=== PATIENT | male | born 1980 | race Caucasian/White ===

== ENCOUNTER 2022-06-11 18:45 | Emergency (ER) | payer BC, OTHER ==
[~2022-06-11] VITALS: Ht 177.8 cm; Wt 108.8 kg
--- NOTE | 2022-06-11 18:53 | ED GI ---
General Chief Complaint: Abdominal/GI Problems Stated Complaint: N/V,DIARRHEA Nursing Triage Note: PT BROUGHT IN BY [facility] FROM HOME WITH COMPLAINT OF ABD PAIN, N/V/D. STATES STARTED LAST WEDNESDAY. WAS DIAGNOSED WITH SHINGLES ON WEDNESDAY. GIVEN 4MG ZOFRAN BY EMS. History of Present Illness Date Seen by Provider: Jun 11, 2022 Time Seen by Provider: 18:49 Initial Comments Patient brought in by EMS for abdominal pain, nausea and vomiting that started last Wednesday. Was also recently diagnosed with shingles last Wednesday and has been taking the antiviral for that. Was given 4mg of Zofran enroute and that seems to have resolved his nausea at this time. Denies fever or recent sick contacts that he is aware of. Timing/Duration: 1 Week Severity/Quality: Moderate Location: Generalized Abdomen Modifying Factors: Worsens With Eating; Improves With Lying down, Improves With Resting Associated Symptoms: Diaphoresis, Nausea/Vomiting; No Shortness of Air Allergies and Home Medications Allergies Coded Allergies: No Known Drug Allergies (Unverified , 06/11/22) Patient Home Medication List Home Medication List Reviewed: Yes Review of Systems Review of Systems Constitutional: chills, diaphoresis; No dizziness, No fever; weakness (generalized) EENTM: No Symptoms Reported Respiratory: Denies Cough, Denies Shortness of Air Cardiovascular: Denies Chest Pain, Denies Palpitations, Denies Syncope Gastrointestinal: Abdominal Pain, Diarrhea, Nausea, Vomiting Genitourinary: Denies Frequency, Denies Pain, Denies Urgency Musculoskeletal: No back pain, No joint pain Skin: No pruritus, No rash Psychiatric/Neurological: Denies Headache, Denies Tingling All Other Systems Reviewed Negative Unless Noted: Yes Past [id number] Hx Family Medical History Reviewed Nursing Family Hx Physical Exam Vital Signs Vital Signs - First Documented 06/11/22 18:47 Temp 36.4 Pulse 103 Resp 20 B/P (MAP) 144/107 (119) Pulse Ox 97 O2 Delivery Room Air Capillary Refill : Less Than 3 Seconds Height/Weight/BMI Height: '" Weight: lbs. oz. kg; 34.00 BMI Method: General Appearance: WD/WN, mild distress (due to cramping) Neck: non-tender, full range of motion, supple, normal inspection Respiratory: chest non-tender, lungs clear, normal breath sounds, no respiratory distress, no accessory muscle use Cardiovascular: regular rate, rhythm Gastrointestinal: soft, no organomegaly, tenderness (epigastric) Extremities: normal range of motion, non-tender, normal inspection Back: normal inspection, no CVA tenderness Neurologic/Psychiatric: alert, normal mood/affect, oriented x 3 Skin: normal color, diaphoresis Progress/Results/Core Measures Results/Orders Lab Results Laboratory Tests Test 06/11/22 18:54 06/11/22 19:47 06/11/22 20:13 Range/Units White Blood Count 13.8 H 4.3-11.0 10^3/uL Red Blood Count 6.59 H 4.30-5.52 10^6/uL Hemoglobin 20.4 H 13.3-17.7 g/dL Hematocrit 57 H 40-54 % Mean Corpuscular Volume 86 80-99 fL Mean Corpuscular Hemoglobin 31 25-34 pg Mean Corpuscular Hemoglobin Concent 36 32-36 g/dL Red Cell Distribution Width 13.8 10.0-14.5 % Platelet Count 294 130-400 10^3/uL Mean Platelet Volume 10.5 9.0-12.2 fL Immature Granulocyte % (Auto) 0 % Neutrophils (%) (Auto) 69 42-75 % Lymphocytes (%) (Auto) 25 12-44 % Monocytes (%) (Auto) 4 0-12 % Eosinophils (%) (Auto) 1 0-10 % Basophils (%) (Auto) 1 0-10 % Neutrophils # (Auto) 9.5 H 1.8-7.8 10^3/uL Lymphocytes # (Auto) 3.4 1.0-4.0 10^3/uL Monocytes # (Auto) 0.6 0.0-1.0 10^3/uL Eosinophils # (Auto) 0.1 0.0-0.3 10^3/uL Basophils # (Auto) 0.1 0.0-0.1 10^3/uL Immature Granulocyte # (Auto) 0.0 0.0-0.1 10^3/uL Sodium Level 140 135-145 MMOL/L Potassium Level 3.8 3.6-5.0 MMOL/L Chloride Level 109 H 98-107 MMOL/L Carbon Dioxide Level 18 L 21-32 MMOL/L Anion Gap 13 5-14 MMOL/L Blood Urea Nitrogen 15 7-18 MG/DL Creatinine 1.50 H 0.60-1.30 MG/DL Estimat Glomerular Filtration Rate 59 BUN/Creatinine Ratio 10 Glucose Level 102 70-105 MG/DL Calcium Level 9.8 8.5-10.1 MG/DL Corrected Calcium 8.5-10.1 MG/DL Total Bilirubin 0.6 0.1-1.0 MG/DL Aspartate Amino Transf (AST/SGOT) 25 5-34 U/L Alanine Aminotransferase (ALT/SGPT) 54 0-55 U/L Alkaline Phosphatase 107 40-136 U/L Total Protein 8.6 H 6.4-8.2 GM/DL Albumin 4.9 H 3.2-4.5 GM/DL Serum Alcohol 12 H <10 MG/DL Urine Color MOHAN H Urine Clarity CLOUDY Urine pH 5.0 5-9 Urine Specific [place] >=1.030 1.016-1.022 Urine Protein 2+ H NEGATIVE Urine Glucose (UA) NEGATIVE NEGATIVE Urine Ketones TRACE H NEGATIVE Urine Nitrite NEGATIVE NEGATIVE Urine Bilirubin 2+ H NEGATIVE Urine Urobilinogen 1.0 < = 1.0 MG/DL Urine Leukocyte Esterase NEGATIVE NEGATIVE Urine RBC (Auto) NEGATIVE NEGATIVE Urine RBC RARE /HPF Urine WBC 0-2 /HPF Urine Squamous Epithelial Cells RARE /HPF Urine Crystals PRESENT H /LPF Urine Calcium Oxalate Crystals LARGE H /LPF Urine Bacteria MODERATE H /HPF Urine Casts PRESENT /LPF Urine Hyaline Casts >50 H /LPF Urine Mucus MODERATE H /LPF Urine Culture Indicated YES Urine Opiates Screen NEGATIVE NEGATIVE Urine Oxycodone Screen NEGATIVE NEGATIVE Urine Methadone Screen NEGATIVE NEGATIVE Urine Propoxyphene Screen NEGATIVE NEGATIVE Urine Barbiturates Screen NEGATIVE NEGATIVE Ur Tricyclic Antidepressants Screen POSITIVE H NEGATIVE Urine Phencyclidine Screen NEGATIVE NEGATIVE Urine Amphetamines Screen NEGATIVE NEGATIVE Urine Methamphetamines Screen NEGATIVE NEGATIVE Urine Benzodiazepines Screen NEGATIVE NEGATIVE Urine Cocaine Screen NEGATIVE NEGATIVE Urine Cannabinoids Screen POSITIVE H NEGATIVE My Orders Orders - 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 Cbc With Automated Diff (06/11/22 18:54) Drug Screen Stat (Urine) (06/11/22 18:54) Ua Culture If Indicated (06/11/22 18:54) Alcohol (06/11/22 19:47) Comprehensive Metabolic Panel (06/11/22 19:47) Ns Iv 1000 Ml (Sodium Chloride 0.9%) (06/11/22 20:45) Urine Culture (06/11/22 20:13) Vital Signs/I&O 06/11/22 06/11/22 18:47 21:37 Temp 36.4 36.4 Pulse 103 97 Resp 20 17 B/P (MAP) 144/107 (119) 138/101 Pulse Ox 97 97 O2 Delivery Room Air Room Air 06/12/22 00:00 Intake Total 1100 ml Balance 1100 ml Blood Pressure Mean: 119 Progress Progress Note : Progress Note Patient arrives to the emergency department via EMS for abdominal pain, nausea, vomiting and diarrhea. Is diaphoretic upon arrival and overall not feeling well. Received 4mg Zofran enroute by EMS which improved his nausea at this time. Does have a liter of IVF currently running from EMS. Will check labs and monitor. 2044: Labs resulted at this time and discussed with Dr. Muñiz. Of note, WBC count is elevated 13.8. Likely secondary to vomiting. Hemoglobin is 20.4 and likely this elevated from dehydration and not accurate reading. C02 is 18 after the first liter of fluids. Cr 1.50. No priors on record. He denies history of abnormal kidney function in the past. Could potentially have IAIN secondary to dehydration. UA shows hyaline casts and high specific gravity which is likely secondary to dehydration. UDS was positive for THC and Tricyclics. Will order second liter of fluids. Patient is not vomiting currently. Reports that he is feeling a lot better at this time. Does not have a PCP. 2124: Second liter of IVFs infused at this time. Discussed with patient on importance of follow up and getting labs rechecked on Wednesday next week. I did offer admission for possible IAIN but he declined. Continued to report that he is feeling a lot better. I instructed on the importance of continuing to push fluids and follow up with [facility] next week for repeat lab draw. Reasons to return to the ER were discussed with patient in addition. Departure Impression Primary Impression: Dehydration Disposition: 01 HOME, SELF-CARE Condition: Stable Departure-Patient Inst. Decision time for Depature: 21:31 Patient Instructions: Dehydration, Adult (DC) Add. Discharge Instructions: 1. Follow up [facility] [phone] on Wednesday for repeat labs of CBC and Chemistry. 2. Continue to push fluids. 3. Finish shingles medication as directed. 4. Return here if worse or concerns. All discharge instructions reviewed with patient and/or family. Voiced understanding. SHELBIE MURGUIA APRN Jun 11, 2022 18:53
[2022-06-11 19:03] LABS: BASOPHILS # (AUTO) 0.1 10^3/uL (0.0-0.1); BASOPHILS % (AUTO) 1 % (0-10); EOSINOPHILS # (AUTO) 0.1 10^3/uL (0.0-0.3); EOSINOPHILS % (AUTO) 1 % (0-10); HEMATOCRIT 57 % (40-54); HEMOGLOBIN 20.4 g/dL (13.3-17.7); LYMPHOCYTES # (AUTO) 3.4 10^3/uL (1.0-4.0); LYMPHOCYTES % (AUTO) 25 % (12-44); MEAN CORPUSCULAR HEMOGLOBIN 31 pg (25-34); MEAN CORPUSCULAR HGB CONC 36 g/dL (32-36); MEAN CORPUSCULAR VOLUME 86 fL (80-99); MEAN PLATELET VOLUME 10.5 fL (9.0-12.2); MONOCYTES # (AUTO) 0.6 10^3/uL (0.0-1.0); MONOCYTES % (AUTO) 4 % (0-12); NEUTROPHILS # (AUTO) 9.5 10^3/uL (1.8-7.8); NEUTROPHILS % (AUTO) 69 % (42-75); PLATELET COUNT 294 10^3/uL (130-400); WHITE BLOOD COUNT 13.8 10^3/uL (4.3-11.0)
[2022-06-11 20:28] LABS: CLARITY,URINE CLOUDY; COLOR,URINE AMBER; GLUCOSE, URINE (UA) NEGATIVE (NEGATIVE); KETONES,URINE TRACE (NEGATIVE); LEUKOCYTE ESTERASE ,URINE NEGATIVE (NEGATIVE); NITRITE,URINE NEGATIVE (NEGATIVE); PROTEIN,URINE 2+ (NEGATIVE)
[2022-06-11 20:36] LABS: ALANINE AMINOTRANSFERASE 54 U/L (0-55); ALBUMIN 4.9 GM/DL (3.2-4.5); ALKALINE PHOSPHATASE 107 U/L (40-136); BILIRUBIN,TOTAL 0.6 MG/DL (0.1-1.0); BUN/CREATININE RATIO 10; CALCIUM 9.8 MG/DL (8.5-10.1); CARBON DIOXIDE 18 MMOL/L (21-32); CHLORIDE 109 MMOL/L (98-107); GFR ESTIMATED 59; GLUCOSE 102 MG/DL (70-105); POTASSIUM 3.8 MMOL/L (3.6-5.0); SODIUM 140 MMOL/L (135-145); TOTAL PROTEIN 8.6 GM/DL (6.4-8.2)
[2022-06-11] MEDS ORDERED: NS IV 1000 ML 1,000 ML IV SCH (20:45)
[2022-06-11 20:48] LABS: BACTERIA,URINE MODERATE /HPF; BILIRUBIN,URINE 2+ (NEGATIVE); RBC,URINE RARE /HPF; WBC,URINE 0-2 /HPF
[2022-06-11 20:49] LABS: CALCIUM OXALATE CRYSTALS,UR LARGE /LPF; HYALINE CASTS, URINE >50 /LPF; SQUAMOUS EPITHELIAL CELL,UR RARE /HPF
[2022-06-11 20:55] LABS: AMPHETAMINE SCREEN, URINE NEGATIVE (NEGATIVE); BARBITURATE SCREEN URINE NEGATIVE (NEGATIVE); BENZODIAZEPINES SCREEN URINE NEGATIVE (NEGATIVE); CANNABINOID SCREEN, URINE POSITIVE (NEGATIVE); COCAINE SCREEN URINE NEGATIVE (NEGATIVE); METHADONE STAT NEGATIVE (NEGATIVE); OPIATE SCREEN URINE NEGATIVE (NEGATIVE); OXYCODONE STAT NEGATIVE (NEGATIVE); PROPOXYPHENE STAT NEGATIVE (NEGATIVE); TRICYCLIC ANTIDEPRESSANTS SCRE POSITIVE (NEGATIVE)
[2022-06-11 21:37] VITALS: BP 138/101
== END 2022-06-11 21:39 | disposition home or self-care (01) ==
LOC: ER 18:47
DX: E86.0 Dehydration (principal); R11.2 Nausea with vomiting, unspecified; D72.829 Elevated white blood cell count, unspecified; Z28.310 Unvaccinated for COVID-19
CPT/HCPCS: 80053; 80306; 81000; 85025; 87088; 99284; G0480; 36415; 80320

== ENCOUNTER 2023-02-07 14:16 | Emergency (ER) | payer BC ==
[~2023-02-07] VITALS: Ht 177 cm; Wt 95.7 kg
[2023-02-07] MEDS ORDERED: NS IV 1000 ML 1,000 ML IV STA ×2 (14:25→15:11)
--- NOTE | 2023-02-07 14:28 | ED Abdominal Pain ---
General Chief Complaint: Abdominal/GI Problems Stated Complaint: DEHYDRATION Source of Information: Patient Exam Limitations: No Limitations History of Present Illness Date Seen by Provider: February 07, 2023 Time Seen by Provider: 14:26 Initial Comments Patient is a 42-year-old male who presents ED with vomiting and cramping. Patient states he started vomiting 2 hours ago. Reports at least 5 episodes of nonbilious vomiting. Denies any hematemesis. Few loose stools. Patient started developing diffuse body cramping. Reports similar type symptoms about 6 months ago required IV fluids. Patient states he did eat steak last night and drink whiskey. Denies daily alcohol use. Denies of any current abdominal pain. Has not urinated since his vomiting. Able to ambulate. Currently drinking Gatorade at this time. He states last time symptoms were much worse and had to be carried into the ER. Denies chest pain, cough, shortness of breath, sore throat, ear pain, headache, dizziness, fever, chills. Denies any drug use Allergies and Home Medications Allergies Coded Allergies: No Known Drug Allergies (Unverified , 06/11/22) Patient Home Medication List Home Medication List Reviewed: Yes Review of Systems Review of Systems Constitutional: No chills, No fever, No malaise EENTM: No Double Vision, No Eye Pain, No Eye Tearing Respiratory: Denies Cough, Denies Orthopnea Cardiovascular: Denies Chest Pain Gastrointestinal: Denies Abdominal Pain; Diarrhea, Nausea, Vomiting Genitourinary: Denies Burning, Denies Discharge, Denies Drainage, Denies Frequency Musculoskeletal: No back pain, No joint pain Skin: No change in color, No change in hair/nails All Other Systems Reviewed Negative Unless Noted: Yes Physical Exam Vital Signs Vital Signs - First Documented 02/07/23 14:36 Temp 35.3 Pulse 82 Resp 18 B/P (MAP) 123/95 (104) Pulse Ox 96 Capillary Refill : Height/Weight/BMI Height: '" Weight: lbs. oz. 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, no motor/sensory deficits, alert, normal mood/affect, oriented x 3 Skin: normal color, warm/dry Progress/Results/Core Measures Results/Orders Lab Results Laboratory Tests Test 02/07/23 14:33 02/07/23 15:51 Range/Units White Blood Count 12.6 H 4.3-11.0 10^3/uL Red Blood Count 6.27 H 4.30-5.52 10^6/uL Hemoglobin 19.2 H 13.3-17.7 g/dL Hematocrit 55 H 40-54 % Mean Corpuscular Volume 88 80-99 fL Mean Corpuscular Hemoglobin 31 25-34 pg Mean Corpuscular Hemoglobin Concent 35 32-36 g/dL Red Cell Distribution Width 13.0 10.0-14.5 % Platelet Count 239 130-400 10^3/uL Mean Platelet Volume 9.8 9.0-12.2 fL Immature Granulocyte % (Auto) 0 % Neutrophils (%) (Auto) 81 H 42-75 % Lymphocytes (%) (Auto) 11 L 12-44 % Monocytes (%) (Auto) 5 0-12 % Eosinophils (%) (Auto) 2 0-10 % Basophils (%) (Auto) 1 0-10 % Neutrophils # (Auto) 10.3 H 1.8-7.8 10^3/uL Lymphocytes # (Auto) 1.3 1.0-4.0 10^3/uL Monocytes # (Auto) 0.7 0.0-1.0 10^3/uL Eosinophils # (Auto) 0.3 0.0-0.3 10^3/uL Basophils # (Auto) 0.1 0.0-0.1 10^3/uL Immature Granulocyte # (Auto) 0.0 0.0-0.1 10^3/uL Sodium Level 137 135-145 MMOL/L Potassium Level 3.9 3.6-5.0 MMOL/L Chloride Level 107 98-107 MMOL/L Carbon Dioxide Level 16 L 21-32 MMOL/L Anion Gap 14 5-14 MMOL/L Blood Urea Nitrogen 15 7-18 MG/DL Creatinine 1.20 0.60-1.30 MG/DL Estimat Glomerular Filtration Rate 77 BUN/Creatinine Ratio 13 Glucose Level 133 H 70-105 MG/DL Calcium Level 11.0 H 8.5-10.1 MG/DL Corrected Calcium 8.5-10.1 MG/DL Magnesium Level 2.3 1.6-2.4 MG/DL Total Bilirubin 1.0 0.1-1.0 MG/DL Aspartate Amino Transf (AST/SGOT) 20 5-34 U/L Alanine Aminotransferase (ALT/SGPT) 27 0-55 U/L Alkaline Phosphatase 112 40-136 U/L Total Creatine Kinase 181 30-200 U/L Total Protein 9.1 H 6.4-8.2 GM/DL Albumin 5.5 H 3.2-4.5 GM/DL Lipase 20 8-78 U/L Urine Color YELLOW Urine Clarity CLEAR Urine pH 5.5 5-9 Urine Specific [place] 1.015 L 1.016-1.022 Urine Protein NEGATIVE NEGATIVE Urine Glucose (UA) NEGATIVE NEGATIVE Urine Ketones NEGATIVE NEGATIVE Urine Nitrite NEGATIVE NEGATIVE Urine Bilirubin NEGATIVE NEGATIVE Urine Urobilinogen 0.2 < = 1.0 MG/DL Urine Leukocyte Esterase NEGATIVE NEGATIVE Urine RBC (Auto) TRACE-I H NEGATIVE Urine RBC RARE /HPF Urine WBC NONE /HPF Urine Crystals NONE /LPF Urine Bacteria NEGATIVE /HPF Urine Casts NONE /LPF Urine Mucus SMALL H /LPF Urine Culture Indicated NO Urine Opiates Screen NEGATIVE NEGATIVE Urine Oxycodone Screen NEGATIVE NEGATIVE Urine Methadone Screen NEGATIVE NEGATIVE Urine Propoxyphene Screen NEGATIVE NEGATIVE Urine Barbiturates Screen NEGATIVE NEGATIVE Ur Tricyclic Antidepressants Screen NEGATIVE NEGATIVE Urine Phencyclidine Screen NEGATIVE NEGATIVE Urine Amphetamines Screen NEGATIVE NEGATIVE Urine Methamphetamines Screen NEGATIVE NEGATIVE Urine Benzodiazepines Screen NEGATIVE NEGATIVE Urine Cocaine Screen NEGATIVE NEGATIVE Urine Cannabinoids Screen POSITIVE H NEGATIVE My Orders Orders - [facility] Ua Culture If Indicated (02/07/23 14:25) Cbc With Automated Diff (02/07/23 14:25) Comprehensive Metabolic Panel (02/07/23 14:25) Magnesium (02/07/23 14:25) Creatine Kinase (02/07/23 14:25) Lipase (02/07/23 14:25) Ns Iv 1000 Ml (Sodium Chloride 0.9%) (02/07/23 14:25) Ondansetron Injection (Zofran Injectio (02/07/23 14:30) Drug Screen Stat (Urine) (02/07/23 14:32) Ns Iv 1000 Ml (Sodium Chloride 0.9%) (02/07/23 15:11) Medications Given in ED Current Medications Medications Dose Ordered Sig/Josh Route Start Time Stop Time Status Last Admin Dose Admin Ondansetron HCl 4 mg ONCE ONCE IVP 02/07/23 14:30 02/07/23 14:31 DC 02/07/23 14:34 4 MG Vital Signs/I&O 02/07/23 02/07/23 14:36 16:01 Temp 35.3 Pulse 82 85 Resp 18 16 B/P (MAP) 123/95 (104) 129/101 Pulse Ox 96 99 Departure Communication (PCP) Reviewed previous ER visits, H&P, lab testing. Patient with vomiting and generalized abdominal cramping. Vomiting started a few hours before arrival. Diffuse extremity cramping. Patient with a steady gait. Differential diagnosis of electrolyte abnormality, acute kidney injury, rhabdomyolysis, pancreatitis, gastritis. Patient on arrival no acute abdominal tenderness. States he ate last night and drank whiskey. Does not drink alcohol daily. Drinks more social. Vital signs stable. Similar symptoms around 6 months ago improved with fluid. Drinking Gatorade on arrival. Due to current complaint CBC, CMP, CK, urinalysis, magnesium level was ordered. CBC showed white blood count 12.6, hemoglobin 19.6. Hemoglobin chronically elevated and similar to her last lab work. Chemistry showed normal electrolytes, kidney function, liver function. Calcium 11.0. Normal CPK. Normal lipase. Received 2 L of fluid. Zofran for nausea. Patient was able to urinate without evidence of infection. Patient states cramping has improved and feeling much better at this time. Zofran for vomiting. Patient does not appear in acute distress. Patient feeling much better at this time. Recommend continue monitoring symptoms at home. Continue drinking Gatorade. If any worsening vomiting, developing pain, worsening cramping to return back to ED. Impression Primary Impression: Dehydration Disposition: 01 HOME, SELF-CARE Condition: Stable Departure-Patient Inst. Decision time for Depature: 15:55 Referrals: [facility] [place],LOCAL PHYSICIAN (PCP) Primary Care Physician Patient Instructions: Dehydration, Adult ED [facility] February 07, 2023 14:28
[2023-02-07] MEDS ORDERED: ONDANSETRON 4 MG/2 ML (SDV) Z0FRAN IVP ONE (14:30)
[2023-02-07 14:40] LABS: BASOPHILS # (AUTO) 0.1 10^3/uL (0.0-0.1); BASOPHILS % (AUTO) 1 % (0-10); EOSINOPHILS # (AUTO) 0.3 10^3/uL (0.0-0.3); EOSINOPHILS % (AUTO) 2 % (0-10); HEMATOCRIT 55 % (40-54); HEMOGLOBIN 19.2 g/dL (13.3-17.7); LYMPHOCYTES # (AUTO) 1.3 10^3/uL (1.0-4.0); LYMPHOCYTES % (AUTO) 11 % (12-44); MEAN CORPUSCULAR HEMOGLOBIN 31 pg (25-34); MEAN CORPUSCULAR HGB CONC 35 g/dL (32-36); MEAN CORPUSCULAR VOLUME 88 fL (80-99); MEAN PLATELET VOLUME 9.8 fL (9.0-12.2); MONOCYTES # (AUTO) 0.7 10^3/uL (0.0-1.0); MONOCYTES % (AUTO) 5 % (0-12); NEUTROPHILS # (AUTO) 10.3 10^3/uL (1.8-7.8); NEUTROPHILS % (AUTO) 81 % (42-75); PLATELET COUNT 239 10^3/uL (130-400); WHITE BLOOD COUNT 12.6 10^3/uL (4.3-11.0)
[2023-02-07 14:47] LABS: ALBUMIN 5.5 GM/DL (3.2-4.5); CHLORIDE 107 MMOL/L (98-107); POTASSIUM 3.9 MMOL/L (3.6-5.0); SODIUM 137 MMOL/L (135-145)
[2023-02-07 14:50] LABS: GLUCOSE 133 MG/DL (70-105); TOTAL PROTEIN 9.1 GM/DL (6.4-8.2)
[2023-02-07 14:51] LABS: CARBON DIOXIDE 16 MMOL/L (21-32)
[2023-02-07 14:53] LABS: ALKALINE PHOSPHATASE 112 U/L (40-136); GFR ESTIMATED 77
[2023-02-07 14:54] LABS: BUN/CREATININE RATIO 13
[2023-02-07 14:56] LABS: ALANINE AMINOTRANSFERASE 27 U/L (0-55); MAGNESIUM 2.3 MG/DL (1.6-2.4)
[2023-02-07 14:57] LABS: CREATINE KINASE 181 U/L (30-200); LIPASE 20 U/L (8-78)
[2023-02-07 16:01] VITALS: BP 129/101
[2023-02-07 16:02] LABS: BILIRUBIN,URINE NEGATIVE (NEGATIVE); CLARITY,URINE CLEAR; COLOR,URINE YELLOW; GLUCOSE, URINE (UA) NEGATIVE (NEGATIVE); KETONES,URINE NEGATIVE (NEGATIVE); LEUKOCYTE ESTERASE ,URINE NEGATIVE (NEGATIVE); NITRITE,URINE NEGATIVE (NEGATIVE); PH,URINE 5.5 (5-9); PROTEIN,URINE NEGATIVE (NEGATIVE)
[2023-02-07 16:19] LABS: BACTERIA,URINE NEGATIVE /HPF; RBC,URINE RARE /HPF
[2023-02-07 16:23] LABS: AMPHETAMINE SCREEN, URINE NEGATIVE (NEGATIVE); BARBITURATE SCREEN URINE NEGATIVE (NEGATIVE); BENZODIAZEPINES SCREEN URINE NEGATIVE (NEGATIVE); CANNABINOID SCREEN, URINE POSITIVE (NEGATIVE); COCAINE SCREEN URINE NEGATIVE (NEGATIVE); METHADONE STAT NEGATIVE (NEGATIVE); OPIATE SCREEN URINE NEGATIVE (NEGATIVE); OXYCODONE STAT NEGATIVE (NEGATIVE); PROPOXYPHENE STAT NEGATIVE (NEGATIVE); TRICYCLIC ANTIDEPRESSANTS SCRE NEGATIVE (NEGATIVE)
== END 2023-02-07 16:01 | disposition home or self-care (01) ==
LOC: EDUNIT# 14:16 → ER 14:18
DX: E86.0 Dehydration (principal); R10.84 Generalized abdominal pain; R11.2 Nausea with vomiting, unspecified; Z28.310 Unvaccinated for COVID-19
CPT/HCPCS: 36415; 80053; 80306; 81000; 82550; 83690; 83735; 85025